=== PATIENT | female | born 1985 | race Caucasian/White ===

== ENCOUNTER 2020-05-04 19:41 | Emergency (ER) | payer MEDICAID ==
[~2020-05-04] VITALS: Ht 160 cm; Wt 65.1 kg
[2020-05-04] MEDS ORDERED: predniSONE 20 mg tablet PO ONE (20:10)
[2020-05-04] MEDS ORDERED: ipratropium/albuterol 3ml nebule NEB ONE (20:10)
[2020-05-04] MEDS ORDERED: triamcinolone acetonide 40mg/ml inj IM ONE (20:10)
[2020-05-04] MEDS ORDERED: CefTRIAXone/D5W-Rocephin 1gm 50 ML IV ONE (20:35)
[2020-05-04] MEDS ORDERED: azithromycin/NS 500mg/250ml 250 ML IV ONE (20:35)
[2020-05-04] MEDS ORDERED: AZIT-63 PO (21:46)
[2020-05-04] MEDS ORDERED: ondansetron/PF 4mg/2ml inj IV ONE (22:10)
[2020-05-04 22:33] LABS: BASOPHILS # (AUTO) 0.1 X10'3 (0-0.2); BASOPHILS % (AUTO) 0.8 % (0-1); EOSINOPHILS # (AUTO) 1.4 X10'3 (0-0.9); EOSINOPHILS % (AUTO) 10.5 % (0-6); HEMATOCRIT 34.8 % (35.0-45.0); HEMOGLOBIN 10.9 g/dl (12.0-16.0); LYMPHOCYTES # (AUTO) 2.2 X10'3 (1.1-4.8); LYMPHOCYTES % (AUTO) 17.2 % (21-51); MEAN CORPUSCULAR HEMOGLOBIN 24.1 PG (27.0-31.0); MEAN CORPUSCULAR HGB CONC 31.3 g/dL (33.0-36.5); MEAN CORPUSCULAR VOLUME 77.1 FL (78-98); MEAN PLATELET VOLUME 8.5 FL (7.4-10.4); MONOCYTES # (AUTO) 1.2 X10'3 (0-0.9); NEUTROPHILS # (AUTO) 8.1 X10'3 (1.8-7.7); NEUTROPHILS % (AUTO) 62.5 % (42-75); PLATELET COUNT 454 X10'3 (140-440); RED BLOOD COUNT 4.51 X10'6 (4.20-5.60); WHITE BLOOD COUNT 12.9 X10'3 (4.5-11.0)
[2020-05-04 22:40] VITALS: BP 105/63
[2020-05-04 22:46] LABS: ALANINE AMINOTRANSFERASE 19 U/L (12-78); ALBUMIN 2.9 G/DL (3.4-5.0); ALBUMIN/GLOBULIN RATIO 0.6 (1.1-1.5); ALKALINE PHOSPHATASE 112 IU/L (46-116); ANION GAP 7 (8-16); ASPARTATE AMINO TRANSFERASE 25 U/L (10-37); BILIRUBIN,TOTAL 0.4 MG/DL (0.1-1.0); BLOOD UREA NITROGEN 7 MG/DL (7-18); BUN/CREATININE RATIO 9.2 (6.6-38.0); CALCIUM 9.4 MG/DL (8.5-10.1); CHLORIDE 99 MMOL/L (99-107); CREATININE 0.76 MG/DL (0.40-0.90); GLUCOSE 91 MG/DL (70-104); POTASSIUM 3.8 MMOL/L (3.5-5.1); SODIUM 134 MMOL/L (135-145); TOTAL CARBON DIOXIDE 28.3 MMOL/L (24-32); TOTAL PROTEIN 7.9 G/DL (6.4-8.2); eGFR 88 ML/MIN
== END 2020-05-04 23:46 | disposition home or self-care (01) ==
LOC: ER 19:42
DX: J45.909 Unspecified asthma, uncomplicated (principal); J18.9 Pneumonia, unspecified organism; F15.90 Other stimulant use, unspecified, uncomplicated; Z72.89 Other problems related to lifestyle; Z79.2 Long term (current) use of antibiotics
CPT/HCPCS: 36415; 71045; 80053; 83605; 83880; 84145; 85025; 87040; 87635; 93005; 94640; 99285; J0456; J0696; J2405; J3301; J7512; 94760

== ENCOUNTER 2020-09-11 16:27 | Emergency (ER) | payer MEDICAID ==
[~2020-09-11] VITALS: Ht 160 cm; Wt 22.7 kg
[2020-09-11] MEDS ORDERED: ipratropium/albuterol 3ml nebule NEB ONE ×2 (16:50→19:10)
[2020-09-11] MEDS ORDERED: methylPREDNISolone sod succ 125mg/2ml vial IV ONE (16:50)
[2020-09-11] MEDS ORDERED: normal saline 1000ML IV soln IVB ONE (16:50)
[2020-09-11 17:38] LABS: BASOPHILS # (AUTO) 0.1 X10'3 (0-0.2); BASOPHILS % (AUTO) 0.7 % (0-1); EOSINOPHILS # (AUTO) 2.1 X10'3 (0-0.9); EOSINOPHILS % (AUTO) 14.4 % (0-6); HEMOGLOBIN 12.5 g/dl (12.0-16.0); LYMPHOCYTES # (AUTO) 3.1 X10'3 (1.1-4.8); LYMPHOCYTES % (AUTO) 20.5 % (21-51); MEAN CORPUSCULAR HEMOGLOBIN 23.4 PG (27.0-31.0); MEAN CORPUSCULAR HGB CONC 31.2 g/dL (33.0-36.5); MEAN CORPUSCULAR VOLUME 75.1 FL (78-98); MEAN PLATELET VOLUME 8.4 FL (7.4-10.4); MONOCYTES # (AUTO) 1.3 X10'3 (0-0.9); MONOCYTES % (AUTO) 8.5 % (2-12); NEUTROPHILS # (AUTO) 8.4 X10'3 (1.8-7.7); NEUTROPHILS % (AUTO) 55.9 % (42-75); PLATELET COUNT 469 X10'3 (140-440); RED BLOOD COUNT 5.33 X10'6 (4.20-5.60); RED CELL DISTRIBUTION WIDTH 15.9 % (11.5-14.5); WHITE BLOOD COUNT 14.9 X10'3 (4.5-11.0)
[2020-09-11 17:47] LABS: ANION GAP 8 (8-16); BLOOD UREA NITROGEN 10 MG/DL (7-18); BUN/CREATININE RATIO 15.6 (6.6-38.0); CHLORIDE 99 MMOL/L (99-107); CREATININE 0.64 MG/DL (0.40-0.90); GLUCOSE 115 MG/DL (70-104); POTASSIUM 4.4 MMOL/L (3.5-5.1); SODIUM 138 MMOL/L (135-145); TOTAL CARBON DIOXIDE 30.7 MMOL/L (24-32)
[2020-09-11 17:48] LABS: ALANINE AMINOTRANSFERASE 30 U/L (12-78); ALBUMIN 3.2 G/DL (3.4-5.0); ALBUMIN/GLOBULIN RATIO 0.6 (1.1-1.5); ALKALINE PHOSPHATASE 93 IU/L (46-116); ASPARTATE AMINO TRANSFERASE 25 U/L (10-37); BILIRUBIN,TOTAL 0.5 MG/DL (0.1-1.0); CALCIUM 9.4 MG/DL (8.5-10.1); TOTAL PROTEIN 8.9 G/DL (6.4-8.2); eGFR > 90 ML/MIN
[2020-09-11] MEDS ORDERED: CefTRIAXone/D5W-Rocephin 1gm 50 ML IV ONE (18:20)
[2020-09-11] MEDS ORDERED: PRED20TA PO (19:49)
[2020-09-11] MEDS ORDERED: AZIT-63 PO (19:49)
--- NOTE | 2020-09-11 20:10 | NUR ---
PATIENT GOYO BACK IN FROM OUTSIDE, HAD A PANIC ATTACK AND O2 WAS AT 83%. PUT BACK IN A ROOM, APPLIED O2 AND SAT CAME UP TO 96% ON 4L
[2020-09-11 20:45] VITALS: BP 107/73
== END 2020-09-11 21:15 | disposition home or self-care (01) ==
LOC: ER 16:28
DX: J20.9 Acute bronchitis, unspecified (principal); R06.02 Shortness of breath; J45.909 Unspecified asthma, uncomplicated; F12.90 Cannabis use, unspecified, uncomplicated; F15.90 Other stimulant use, unspecified, uncomplicated; Z87.01 Personal history of pneumonia (recurrent); Z79.2 Long term (current) use of antibiotics; Z79.899 Other long term (current) drug therapy
CPT/HCPCS: 36415; 71045; 80053; 83605; 84145; 85025; 94640; 96365; 96375; 99284; J0696; J2930; J7030; 94760